=== PATIENT | female | born 1955 | race Caucasian/White ===

== ENCOUNTER 2017-06-18 10:38 | Inpatient (IN) ==
[2017-06-18] MEDS ORDERED: methylPREDNISolone SOD SUC 125 MG/2 ML VIAL IV STA (11:14)
[2017-06-18] MEDS ORDERED: MAGNESIUM SULF RIDER 2 GM in PREMIX 1 EACH IV STA (11:14)
[2017-06-18] MEDS ORDERED: ALBUTEROL/IPRATROPIUM 3 ML NEB RESP TX PRN ×3 (11:15→11:16)
--- NOTE | 2017-06-18 11:18 | EKG Report ---
Stationary ECG Study [facility] ER Test Date: 06/18/2017 11:08:34 AM Pat Name: BOZENA MARTI Department: Room: Gender: F Form Coverer: : [id number] Requested by: Brown Cuevas Order Number: [id number] Reading MD: ISABEL SUTTON Intervals [place] Rate: 77 P: 26 ID: [id number] QRS: 5 QRSD: 90 T: 22 QT: 372 QTc: 404 Interpretive Statements SINUS RHYTHM WITH FREQUENT VENTRICULAR PREMATURE COMPLEXES IN A BIGEMINAL PATTERN LOW QRS VOLTAGE IN PRECORDIAL LEADS MODERATE ST DEPRESSION Electronically Signed On 06-18-17 11:34:32 CDT by ISABEL SUTTON [email or web address]
[2017-06-18 11:54] LABS: Basophils # 0.1 10*3/uL (0.0-0.2); Basophils % 0.6 % (0.0-0.8); Eosinophils # 0.1 10*3/uL (0.0-0.87); Eosinophils % 1.4 % (0.00-10.9); Hematocrit 37.8 VOL% (35.7-47.0); Hemoglobin 12.5 GM/DL (12.0-16.0); Immature Granulocytes % 1.1 %; Immature Granulocytes Absolute 0.11 #; Lymphocytes # 2.9 10*3/uL (1.4-4.0); Lymphocytes % 28.6 % (21.3-54.2); Mean Corpuscular HGB Conc 33.1 GM/DL (32-36); Mean Corpuscular Hemoglobin 32 PG (27-34); Mean Corpuscular Volume 96.9 FL (87-102); Mean Platelet Volume 10.2 FL (9.6-12.0); Monocytes # 1.1 10*3/uL (0.11-0.8); Monocytes % 10.3 % (1.7-12.7); Platelet Count 186 T/CUMM (130-400); White Blood Count 10.2 T/CUMM (4-12)
[2017-06-18] MEDS ORDERED: MAGNESIUM SULF RIDER 50 ML IV ONE (11:54)
[2017-06-18] MEDS ORDERED: methylPREDNISolone SOD SUC 125 MG/2 ML VIAL ONE (11:55)
--- NOTE | 2017-06-18 12:17 | XRay Report ---
XR chest 1V portable Indication: Shortness of breath. Chest one view: No comparison. Large hiatal hernia is present. Heart size is normal. Lungs are hypoinflated with mild atelectasis but otherwise clear. Pleural spaces are clear. Surgical clips in the epigastric region noted. Impression: Large hiatal hernia. Suspect breakdown of fundoplication. PROCEDURE INTERPRETED AT [facility] DEPARTMENT OF RADIOLOGY Final Report Signed by: Noah Juan M.D.
[2017-06-18 12:28] LABS: Alanine Aminotransferase 32 U/L (13-56); Albumin 3.6 G/DL (3.4-5.0); Alkaline Phosphatase 69 U/L (45-117); Aspartate Amino Transferase 50 U/L (0-37); Bilirubin,Total < 0.39 MG/DL (0.2-1.0); Blood Urea Nitrogen 15 MG/DL (7-18); Calcium 8.4 MG/DL (8.5-10.1); Glucose 100 MG/DL (74-106); Osmolality,Calculated 277.5 MOS/KG (273-304); Potassium 4.5 MMOL/L (3.5-5.1); Sodium 139 MMOL/L (136-145); Total Protein 6.8 G/DL (6.4-8.3)
[2017-06-18 12:30] LABS: Troponin I Only 0.144 NG/ML (0.00-0.045)
[2017-06-18] MEDS ORDERED: ALBUTEROL 2.5 MG/3 ML NEB RESP TX STA (13:29)
--- NOTE | 2017-06-18 13:29 | Emergency Department Note ---
Quentin Velez Mantricia, am scribing for, and in the presence of, Brown Cuevas Jr., MD 11:17. Faith Velez Marvin Jr., MD, personally performed the services described in this documentation, ascribed by Josefa Saavedra in my presence, and it is both accurate and complete . Arrival - Arrival Chief Complaint: Shortness of Breath Stated Complaint: asthma attack ED Nursing Triage Note: C/o SOB, cough, and wheezing-onset yesterday. States she thinks she ran some fever yesterday, but is unsure of how high it was. Audible wheezing noted. Mode of Arrival: Wheelchair Limitations: Language Barrier Source: Patient - History of Present Illness HPI Narrative: Pt is a 62 y/o white female arriving to ED via wheelchair with c/o SOB that onset yesterday. She states that she had a similar episode 6 months ago when she was Dx with an asthma attack and bronchitis. She also reports a cough with green sputum, a subjective fever yesterday, and audible wheezing. Pt admits that she used to smoke for 48 years and has recently stopped 2 weeks ago. She reports that the SOB worsens with movement. She states that she has no local PCP because she recently moved here from [place]. She asks for a breathing treatment for some relief. No other complaints were reported to ED. Onset (ago): day(s) Consistency: constant Severity: moderate Date of Last Menstrual Period: hysterectomy Allergies/Adverse Reactions: Allergies Allergy/AdvReac Type Severity Reaction Status Date / Time Penicillins Allergy HIVES Verified 06/03/17 11:31 Review of System - Review of System Constitutional: Absent: chills, diaphoresis, fever Eyes: Absent: pain Head/Ears/Nose/Throat: Absent: earache Respiratory: Present: cough (with green sputum), respiratory distress (SOB), wheezing Gastrointestinal: Absent: abdominal pain, nausea, vomiting, diarrhea Medical,Surgical,& Family Hx - Medical History Neurology: No history of: Seizures Musculoskeletal: History of: Back/Neck Problems - Social History Smoking Status: Former smoker Frequency of Alcohol Use: None Type of Drug Use: None Exam Physical Examination: General: Well-developed well-nourished, moderate respiratory distress, patient can only speak 2-3 word sentences at a time Head: Normocephalic, atraumatic. Eyes: PERRLA, EOMI. Nose: No obvious acute deformities or discharge. Mouth: No obvious acute injury. Neck: Full range of motion without obvious pain. No midline tender to palpation. Lymphatic: no significant lymphadenopathy noted. Lungs: Tachypnea, marketed wheezing on inspiration and expiration, decreased air movement Heart: regular rate and rhythm, no obvious mummers. Abdomen: Soft nontender, nondistended, normal active bowel sounds. Skin: No obivous acute lesions noted Musculoskeletal: No gross deformities. Neurological: No focal findings, cranial nerves II through XII grossly normal. Psychiatric: Appropriate mood.. : Deferred Vital Signs: Vital Signs Temperature 96.8 F L 06/18/17 12:14 Pulse Rate 69 06/18/17 12:17 Respiratory Rate 28 H 06/18/17 12:17 Blood Pressure 112/56 06/18/17 12:14 O2 Sat by Pulse Oximetry 100 06/18/17 12:17 Course Course Narrative: Differential diagnosis, COPD exacerbation, pneumonia - Reevaluation(s) Reevaluation #1: Patient says she feels much better but she still has a significant amount of wheezing. The elevated troponin could be secondary to her chronic pulmonary disease or cardiac in origin. I will call the hospitalist and get him to admit this patient Time: 13:26 Results - Labs CBC & BMP: 06/18/17 11:42 06/18/17 11:42 Lab Results: I have reviewed the patients labs Labs: Laboratory Tests 06/18/17 06/18/17 11:42 11:42 WBC 10.2 RBC 3.90 Hgb 12.5 Hct 37.8 MCV 96.9 MCH 32 MCHC 33.1 RDW 15.0 Plt Count 186 MPV 10.2 Neut % (Auto) 58.0 Lymph % (Auto) 28.6 [place] % (Auto) 10.3 Eos % (Auto) 1.4 Baso % (Auto) 0.6 Neut # (Auto) 6.0 Lymph # (Auto) 2.9 [place] # (Auto) 1.1 H Eos # (Auto) 0.1 Baso # (Auto) 0.1 Immature Gran % 1.1 Nucleated RBC % 0.0 Immature Gran # 0.11 Nucleated RBCs # 0.00 Immature Plt Fraction 0.0 Sodium 139 Potassium 4.5 Chloride 103 Carbon Dioxide 29 Anion Gap 11.5 BUN 15 Creatinine 0.90 GFR Calculation 60 BUN/Creatinine Ratio 16.00 Glucose 100 Calculated Osmolality 277.5 Calcium 8.4 L Total Bilirubin < 0.39 AST 50 H ALT 32 Alkaline Phosphatase 69 Troponin I 0.144 H Total Protein 6.8 Albumin 3.6 Globulin 3.2 Albumin/Globulin Ratio 1.1 - EKG EKG results: interpreted by ERMD (Heart rate 77, frequent PVCs noted, and normal sinus rhythm without obvious acute ST changes.) - Diagnostic Findings Procedure: Chest x-ray: report reviewed by me, image reviewed by me (Large hiatal hernia. Suspect breakdown of fundoplication. ) Critical Care Time Critical Care Time: Yes (Severe COPD exacerbation versus ACS) Total Critical Care Time: 36 Disposition Clinical Impression: Severe COPD exacerbation, Elevated troponin Case discussed with: patient, patient's family Disposition: Still a Patient Condition: Stable Time of Disposition: 13:28
[2017-06-18] MEDS ORDERED: ALBUTEROL 2.5 MG/3 ML NEB RESP TX PRN (14:53)
[2017-06-18] MEDS ORDERED: guaiFENesin/DM ER 600-30 MG TABLET PO PRN (14:55)
[2017-06-18] MEDS ORDERED: DEXTROSE 50% 25 GM/50 ML SYRINGE IV PRN (14:55)
[2017-06-18] MEDS ORDERED: NICOTINE 21 MG/24 HR PATCH TRANSDERM PRN (14:55)
[2017-06-18] MEDS ORDERED: GLUCAGON 1 MG VIAL IM PRN (14:55)
[2017-06-18] MEDS ORDERED: ONDANSETRON 4 MG/2 ML VIAL IV PRN (14:55)
[2017-06-18] MEDS ORDERED: ALPRAZolam 0.25 MG TABLET PO PRN (14:59)
--- NOTE | 2017-06-18 15:05 | Hospitalist History & Physical ---
<Kemi Marcialda - Last Filed: 06/18/17 15:00> Assessment and Plan (1) Nicotine addiction Status: Acute Assessment and plan: Patient reports extensive nicotine use in in the past. She reports that she was a one pack per day smoker 40 years. She reported that she recently stopped smoking 2 weeks prior to presentation. Spoke with the patient in great detail regarding the importance of refraining from nicotine consumption. Patient verbalizes understanding of instructions. Nicotine patch has been offered for use during the clinical encounter. Patient has agreed to wear nicotine patch during the inpatient admission. Current Visit: Yes (2) COPD (chronic obstructive pulmonary disease) Status: Acute Assessment and plan: Due to the severity of the patient's presenting symptoms, the patient definitely has an underlying chronic obstructive pulmonary disease component. Given the fact that the patient has a very extensive history of nicotine use spanning over 48 years, the patient most likely has some degree of chronic obstructive pulmonary disease. We will start empiric antibiotics, inhaled bronchodilators, intravenous corticosteroids, and supplemental oxygenation. I spoke with the patient in great detail regarding the need to refrain from nicotine use. The patient reports that she recently stopped smoking 2 weeks prior to presentation. She reports that she had episodes similar in nature to the presenting symptoms in the past and was told that she had a component of both asthma and bronchitis. Although she was given this diagnosis, the patient has failed to obtain a primary care physician for further evaluation. Current Visit: Yes (3) Elevated troponin Status: Acute Assessment and plan: At the time of ED presentation, the patient's troponin level was noted at 0.144. EKG reported normal sinus rhythm but the absence of any acute ST changes however frequent PVCs were noted. We will obtain serial cardiac enzymes if positive we will consult cardiology. Current Visit: Yes History of Present Illness Chief complaint: Shortness of breath History of present illness: This is a 62-year-old female that presented to the ED at [facility] this morning for the evaluation of shortness of breath. The patient has a medical history significant for asthma, bronchitis, chronic obstructive pulmonary disease, nicotine addiction, and chronic neck and back pain. The patient reported no significant surgical history at the time of ED encounter. The patient reported the onset of the above symptoms 1 day prior to presentation. She reported that she recently stopped smoking 2 weeks prior to presentation after 48 years of smoking. She reports that she experienced an episode similar in nature 6 months prior to presentation in which she was subsequently diagnosed with asthma and bronchitis. In addition, she reports a productive cough with thick green sputum, subjective fever yesterday, and severe wheezing. When the patient's symptoms fail to improve, she decided to present to the ED at [facility] for further evaluation. The patient was seen and evaluated at the time of ED presentation. The patient was noted to be experiencing extreme difficulty breathing. Immediate prolonged inhaled bronchodilator treatments were initiated and the patient was placed on supplemental oxygen. Labs were obtained which were remarkable for calcium at 8.4, AST 50, and troponin at 0144. Chest x-ray was obtained which was essentially remarkable for large hiatal hernia and suspect breakdown of fundoplication was noted. In addition, the lungs were noted to be hyperinflated with mild atelectasis but otherwise clear. After brief discussion with both Dr. Cuevas and Dr. Noel, the patient will be admitted to the hospitalist service for continuation of care. At the time of presentation, the patient reported no current home medications. She reported that she recently relocated to [place] from [place] and has not secured a primary care physician; therefore no home medications will be reconciled. CODE STATUS has been discussed; patient is a FULL CODE. Allergies Allergy/AdvReac Type Severity Reaction Status Date / Time Penicillins Allergy HIVES Verified 06/03/17 11:31 Medical,Surgical,& Family Hx - Medical History Neurology: No history of: Seizures Musculoskeletal: History of: Back/Neck Problems - Social History Smoking Status: Former smoker Have you smoked in the last 12 months: Yes Time spent discussing smoking cessation with patient: more than 10 minutes Frequency of Alcohol Use: None Type of Drug Use: None Marital Status: Single Lives With:: Alone Functional capacity: independent ambulation - Constitutional Constitutional: Present: chills, fatigue, fever(s), weakness - EENT Eyes: Absent: blurry vision, diplopia Ears: Absent: decreased hearing, ear discharge, ear pain Nose, mouth and throat: Absent: lip swelling, nasal congestion, neck mass, neck pain, sinus pressure, throat swelling - Cardiovascular Cardiovascular: Present: dyspnea, dyspnea on exertion. Absent: claudication, diaphoresis, orthopnea, palpitations - Respiratory Respiratory: Present: cough, dyspnea, dyspnea on exertion, wheezing, change in phlegm color - Gastrointestinal Gastrointestinal: Absent: bloating, constipation, diarrhea, nausea, vomiting, jaundice - Genitourinary Genitourinary: Absent: abnormal vaginal bleeding, dysuria, flank pain, urinary frequency, urinary hesitancy, urinary incontinence - Musculoskeletal Musculoskeletal: Present: arthralgias, back pain, muscle weakness - Neurological Neurological: Absent: abnormal gait, abnormal speech, dizziness, frequent falls , headache(s), numbness, paresthesias, syncope, tremor(s) - Psychiatric Psychiatric: Present: anxiety, panic attacks. Absent: auditory hallucinations, confusion, difficulty concentrating, homicidal ideation, memory loss, suicidal ideation, visual hallucinations - Endocrine Endocrine: Absent: cold intolerance, fatigue, heat intolerance, polydipsia, polyphagia, polyuria - Hematologic/Lymphatic Hematologic/Lymphatic: Absent: easy bleeding, easy bruising, lymphadenopathy Exam - Constitutional Vitals: Period Temp Pulse Resp BP Sys/Barcenas Pulse Ox Last 24 Hr 96.8 F-96.8 F 39-88 20-36 112-112/56-56 88-100 General appearance: normal weight, mild distress - Head Head exam: Present: normal inspection, normocephalic, atraumatic - Eye Eye exam: Present: EOMI. Absent: conjunctival injection Pupils: Present: ADRIAN, normal accommodation - ENT ENT exam: Present: normal exam, normal external ear exam, normal oropharynx - Neck Neck exam: Present: normal inspection. Absent: lymphadenopathy, meningismus, tenderness, thyromegaly - Respiratory Respiratory exam: Present: accessory muscle use, wheezes. Absent: rales, rhonchi, stridor - Cardiovascular Cardiovascular exam: Present: regular rate and rhythm. Absent: carotid bruit, diastolic murmur, gallop, JVD, rubs, tachycardia - GI/Abdominal GI/Abdominal exam: Present: normal bowel sounds, soft - Extremities Exam Extremities exam: Present: normal inspection, normal capillary refill, full ROM. Absent: edema - Back Exam Back exam: Present: normal inspection - Neurological Exam Neurological exam: Present: alert, oriented X3, CN II-XII intact - Psychiatric Psychiatric exam: Present: anxious - Skin Skin exam: Present: normal color, warm, dry Results - Labs CBC & BMP: 06/18/17 11:42 06/18/17 11:42 Lab Results: I have reviewed the past 24 hour labs <Summer Noel - Last Filed: 06/18/17 17:15> History of Present Illness History of present illness: Ms. Dick is a 62 year old female with COPD/Asthma exacerbation.CXR showed Large hiatal hernia with suspect breakdown of fundoplication, troponin was high. Patient was seen, examined and discussed with the [employer]. -PPIs -Consider Surgery eval on Tuesday if patient is still here to evaluate ? fundoplication breakdown -serial cardiac enzymes -cardiac monitoring-patient states she has a history of ?v.tachy in the past which was ablated. -ASA, cardiology consult -Echo, Lipids, TSH, A1c -D-dimer -continue other management -ACEI, low dose bblocker - Exam - Constitutional Vitals: Period Temp Pulse Resp BP Sys/Barcenas Pulse Ox Last 24 Hr 96.8 F-96.8 F 39-88 20-36 112-137/56-64 88-100 Results - Labs CBC & BMP: 06/18/17 11:42 06/18/17 11:42
[2017-06-18] MEDS ORDERED: LEVOFLOXACIN INJ 150 ML IV ONE (15:42)
[2017-06-18] MEDS ORDERED: LEVOFLOXACIN INJ 750 MG in PREMIX 1 EACH IV SCH (16:00)
[2017-06-18] MEDS ORDERED: ENOXAPARIN 40 MG/0.4 ML SYRINGE SUBCUT SCH (17:00)
[2017-06-18] MEDS: INSULIN REGULAR 100 UNIT/ML SUBCUT SCH ×2 (17:28→20:32)
[2017-06-18 17:37] LABS: Free T4 (Free Thyroxine) 0.74 NG/DL (0.76-1.46); Thyroid Stimulating Hormone 1.66 uIU/ml (0.358-3.74)
[2017-06-18] MEDS: methylPREDNISolone SOD SUC 40 MG/1 ML VIAL IV SCH ×2 (17:41→23:53)
[2017-06-18] MEDS: NICOTINE 21 MG/24 HR PATCH TRANSDERM SCH (18:16)
--- NOTE | 2017-06-18 18:41 | CT Report ---
CT chest PE study Indication: Shortness of breath. CT CHEST WITH CONTRAST, PE PROTOCOL DLP: 231 mGy*cm. One or more of the following dose reduction techniques was used: Automated exposure control, adjustment of the mA and/or kV according the patient size, or use of iterative reconstruction techniques. Comparison: None Technique: Axial CT images of the chest were obtained during the pulmonary arterial phase of contrast injection. Coronal reconstructions were provided. Omnipaque 350, 100 cc. Findings: No central, lobar or segmental pulmonary artery filling defects. Main pulmonary artery is normal in size. Aorta is intact. Heart size is normal. Large hiatal hernia contains 50% of the stomach. No mediastinal, axillary or hilar lymphadenopathy. Atelectasis of the right lower lobe is present. There are some additional atelectasis or scarring the left lung base as well. Otherwise, lungs are clear. Pleural spaces are clear. Endplate degenerative changes thoracic spine are mild. Limited views of the upper abdomen demonstrate postoperative changes of left nephrectomy. The remainder of the upper abdomen appears unremarkable. Impression: 1. No evidence of PE. 2. Large hiatal hernia containing 50% of the stomach. Right basilar atelectasis. 3. Status post left nephrectomy. PROCEDURE INTERPRETED AT [facility] DEPARTMENT OF RADIOLOGY Final Report Signed by: Noah Juan M.D.
[2017-06-18] MEDS: ALBUTEROL/IPRATROPIUM 3 ML NEB RESP TX SCH (19:20)
[2017-06-18 19:50] LABS: Troponin I Only 0.063 NG/ML (0.00-0.045)
--- NOTE | 2017-06-18 20:08 | Cardiology Consult Note ---
Assessment and Plan (1) COPD (chronic obstructive pulmonary disease) Status: Acute Assessment and plan: 1. 62-year-old WF smoker with known significant COPD who quit her singular 5 days ago due to cost, and restarted smoking again yesterday and subsequently had severe wheezing and shortness of breath prompting hospitalization. She is feeling much better now after treatment. 2. Troponins were very slightly elevated at 0.140, and 0 .06 respectively. Given she has no acute EKG changes and has no chest discomfort or other symptoms this suggest acute coronary syndrome, we will simply follow her up in clinic and consider outpatient stress test. 3. 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 4. No further testing from cardiac standpoint is needed; I will sign off; call if needed prior to discharge. Current Visit: Yes (2) Elevated troponin Status: Acute Current Visit: Yes History of Present Illness - Consult Narrative History of present illness: Ms. Dick is a 62 year old female who has a long history of smoking but quit 1-2 weeks ago and also quit taking her Singulair about 5 days ago because it cost so much. She started back smoking yesterday and then began having severe shortness of breath and wheezing as she has had in the past. She was admitted and treated and feels much better now. She has never had any chest discomfort dizziness presyncope syncope or palpitations although she had did have some ventricular bigeminy noted. She has history of frequent PVCs noted back in 1995 and 1 questionable run of ventricular tachycardia. She saw Dr. Buckley after that event and "he did every test, and they are all fine". She reports she is doing very well on atenolol and has been resistant to acid changer the years CC: Summer Noel MD - Home Medications and Allergies Home Medications: Home Medications Medication Instructions Recorded Confirmed Type ALPRAZolam [Alprazolam] 1 mg PO BID 06/18/17 06/18/17 History Atenolol 100 mg PO DAILY 06/18/17 06/18/17 History Baclofen Tab [Lioresal] 5 mg PO BID 06/18/17 06/18/17 History Hydrocodone/Acetaminophen [Gray 1 each PO BID PRN 06/18/17 06/18/17 History 10-325 Tablet] Loratadine [Claritin] 10 mg PO DAILY 06/18/17 06/18/17 History Montelukast Tab [Singulair Tab] 10 mg PO DAILY 06/18/17 06/18/17 History Pregabalin [Lyrica] 75 mg PO DAILY 06/18/17 06/18/17 History Zolpidem [Ambien] 5 mg PO BEDTIME PRN 06/18/17 06/18/17 History Allergies/Adverse Reactions: Allergies Allergy/AdvReac Type Severity Reaction Status Date / Time Penicillins Allergy HIVES Verified 06/03/17 11:31 Medical,Surgical,& Family Hx - Medical History Cardio: History of: Hypertension Psychological: History of: Anxiety Disorders Neurology: No history of: Seizures Respiratory: History of: COPD Renal: History of: Renal (Kidney) Cancer Gastrointestinal: History of: GI Problems (Hernia) Musculoskeletal: History of: Back/Neck Problems - Surgical History Cardiac Surgeries: Sugical HX of: Cardiac Surgery (Attempted Ablasion) Thoracic Surgeries: Surgical HX of;: Nephrectomy Reproductive Surgeries: Surgical HX of;: Hysterectomy - Family History Family History: Reports;: Family Cancer (mother- breast and stomach), Family Hypertension (father) Denies;: Family Anesthesia Reaction, Family Diabetes, Family Heart Disease, Family Hematology, Family Psychiatric Problems, Family Stroke, Additional Family History - Social History Smoking Status: Former smoker Frequency of Alcohol Use: None Type of Drug Use: None Physical Examination Vital Signs Temp Pulse Resp BP Pulse Ox 96.8 F L 39 L 23 112/56 88 L 06/18/17 10:52 06/18/17 10:52 06/18/17 10:52 06/18/17 10:52 06/18/17 10:52 General: Present: Appears Well, No Apparent Distress Cardiac: Present: Reg Rate and Rhythm. Absent: Systolic Murmur, Diastolic Murmur Lungs: Present: Wheezes. Absent: Bibasilar Rales Abdomen: Present: Soft, Non-Tender Extremities: Present: No Edema Result/EKG - Labs CBC & BMP: 06/18/17 11:42 06/18/17 11:42 Labs: Laboratory Results - last 24 hr 06/18/17 06/18/17 06/18/17 11:42 11:42 11:42 WBC 10.2 RBC 3.90 Hgb 12.5 Hct 37.8 MCV 96.9 MCH 32 MCHC 33.1 RDW 15.0 Plt Count 186 MPV 10.2 Neut % (Auto) 58.0 Lymph % (Auto) 28.6 [place] % (Auto) 10.3 Eos % (Auto) 1.4 Baso % (Auto) 0.6 Neut # (Auto) 6.0 Lymph # (Auto) 2.9 [place] # (Auto) 1.1 H Eos # (Auto) 0.1 Baso # (Auto) 0.1 Immature Gran % 1.1 Nucleated RBC % 0.0 Immature Gran # 0.11 Nucleated RBCs # 0.00 Immature Plt Fraction 0.0 D-Dimer, Quantitative Sodium 139 Potassium 4.5 Chloride 103 Carbon Dioxide 29 Anion Gap 11.5 BUN 15 Creatinine 0.90 GFR Calculation 60 BUN/Creatinine Ratio 16.00 Glucose 100 Hemoglobin A1c Calculated Osmolality 277.5 Calcium 8.4 L Total Bilirubin < 0.39 AST 50 H ALT 32 Alkaline Phosphatase 69 Total Creatine Kinase CK-MB (CK-2) Troponin I 0.144 H Total Protein 6.8 Albumin 3.6 Globulin 3.2 Albumin/Globulin Ratio 1.1 Free T4 0.74 L TSH 3rd Generation 1.660 06/18/17 06/18/17 06/18/17 11:42 18:51 18:51 WBC RBC Hgb Hct MCV MCH MCHC RDW Plt Count MPV Neut % (Auto) Lymph % (Auto) [place] % (Auto) Eos % (Auto) Baso % (Auto) Neut # (Auto) Lymph # (Auto) [place] # (Auto) Eos # (Auto) Baso # (Auto) Immature Gran % Nucleated RBC % Immature Gran # Nucleated RBCs # Immature Plt Fraction D-Dimer, Quantitative 1.1 Sodium Potassium Chloride Carbon Dioxide Anion Gap BUN Creatinine GFR Calculation BUN/Creatinine Ratio Glucose Hemoglobin A1c 5.9 Calculated Osmolality Calcium Total Bilirubin AST ALT Alkaline Phosphatase Total Creatine Kinase 82 CK-MB (CK-2) 1.3 Troponin I 0.063 H D Total Protein Albumin Globulin Albumin/Globulin Ratio Free T4 TSH 3rd Generation
[2017-06-18] MEDS: CARVEDILOL 3.125 MG TABLET PO SCH (20:29)
[2017-06-18] MEDS: PANTOPRAZOLE 40 MG TABLET PO SCH (20:29)
[2017-06-18] MEDS: BACLOFEN 10 MG TABLET PO SCH (20:29)
[2017-06-18] MEDS: ALPRAZolam 0.25 MG TABLET PO SCH (20:30)
[2017-06-18] MEDS: DOCUSATE SODIUM 100 MG CAPSULE PO SCH (20:32)
[2017-06-18] MEDS ORDERED: PREGABALIN 75 MG CAPSULE PO SCH (21:00)
[2017-06-18] MEDS ORDERED: MONTELUKAST 10 MG TABLET PO SCH (21:00)
[2017-06-18] MEDS: ZALEPLON 5 MG CAPSULE PO PRN (21:03)
[2017-06-18 22:41] LABS: Apearance,Urine CLEAR (Clear); Bilirubin,Urine Negative (Negative); Blood, Urine Negative (Negative); Glucose,Urine (UA) Negative (Negative); Ketones,Urine Negative (Negative); Mucus,Urine Occasional /LPF (Occasional); Nitrite,Urine Negative (Negative); Protein,Urine Negative; RBC,Urine <1 /HPF (0-4); Squamous Epithelial Cell,Urine Occasional /HPF (0-10); Urine Color Yellow (Yellow); Urine Specific Gravity 1.011 (1.001-1.035); Urine Urobilinogen < 2.0 EU/DL (0.2-1.0); WBC,Urine 2 /HPF (0-6)
[2017-06-18 22:56] LABS: Barbiturates Screen,Urine Negative (Negative); Benzodiazepines Screen,Urine Positive (Negative); Cannabinoid Screen,Urine Negative (Negative); Opiate Screen,Urine Positive (Negative); Phencyclidine Screen,Urine Negative (Negative)
[2017-06-19] MEDS: ALBUTEROL/IPRATROPIUM 3 ML NEB RESP TX SCH ×2 (00:24→07:50)
[2017-06-19] MEDS: ZALEPLON 5 MG CAPSULE PO PRN (00:29)
[2017-06-19] MEDS: methylPREDNISolone SOD SUC 40 MG/1 ML VIAL IV SCH (05:22)
[2017-06-19 06:14] LABS: Basophils % 0.2 % (0.0-0.8); Hematocrit 33.4 VOL% (35.7-47.0); Hemoglobin 11.3 GM/DL (12.0-16.0); Immature Granulocytes % 1.3 %; Immature Granulocytes Absolute 0.08 #; Lymphocytes # 1.2 10*3/uL (1.4-4.0); Lymphocytes % 20.6 % (21.3-54.2); Mean Corpuscular HGB Conc 33.8 GM/DL (32-36); Mean Corpuscular Hemoglobin 32 PG (27-34); Mean Corpuscular Volume 93.8 FL (87-102); Mean Platelet Volume 10.4 FL (9.6-12.0); Monocytes # 0.3 10*3/uL (0.11-0.8); Monocytes % 5.7 % (1.7-12.7); Neutrophils # 4.3 10*3/uL (1.4-7.4); Neutrophils % 72.2 % (38.7-73.9); Platelet Count 170 T/CUMM (130-400); Red Blood Count 3.56 MC/CUMM (3.8-5.5); Red Cell Distribution Width 14.4 % (9.3-17.3); White Blood Count 5.9 T/CUMM (4-12)
[2017-06-19 06:43] LABS: Risk Ratio 3.15; VLDL CHOLESTEROL 20.8 MG/DL
[2017-06-19 06:59] LABS: Troponin I Only 0.037 NG/ML (0.00-0.045)
[2017-06-19 07:00] LABS: Alanine Aminotransferase 24 U/L (13-56); Albumin 2.9 G/DL (3.4-5.0); Alkaline Phosphatase 57 U/L (45-117); Aspartate Amino Transferase 28 U/L (0-37); Bilirubin,Total < 0.39 MG/DL (0.2-1.0); Blood Urea Nitrogen 13 MG/DL (7-18); Calcium 8.3 MG/DL (8.5-10.1); Glucose 147 MG/DL (74-106); Osmolality,Calculated 277.7 MOS/KG (273-304); Potassium 4.9 MMOL/L (3.5-5.1); Sodium 138 MMOL/L (136-145); Total Protein 5.9 G/DL (6.4-8.3)
[2017-06-19] MEDS: INSULIN REGULAR 100 UNIT/ML SUBCUT SCH (08:45)
[2017-06-19] MEDS: BACLOFEN 10 MG TABLET PO SCH (08:46)
[2017-06-19] MEDS: PANTOPRAZOLE 40 MG TABLET PO SCH (08:46)
[2017-06-19] MEDS: CARVEDILOL 3.125 MG TABLET PO SCH (08:46)
[2017-06-19] MEDS: DOCUSATE SODIUM 100 MG CAPSULE PO SCH (08:46)
[2017-06-19] MEDS: NICOTINE 21 MG/24 HR PATCH TRANSDERM SCH ×2 (08:47→08:51)
[2017-06-19] MEDS: ALPRAZolam 0.25 MG TABLET PO SCH (08:47)
[2017-06-19] MEDS ORDERED: LISINOPRIL 2.5 MG TABLET PO SCH (09:00)
[2017-06-19] MEDS ORDERED: ASPIRIN CHEW 81 MG TABLET PO SCH (09:00)
[2017-06-19] MEDS ORDERED: LORATADINE 10 MG TABLET PO SCH (09:00)
[2017-06-19 09:07] VITALS: BP 123/66
--- NOTE | 2017-06-19 09:10 | XRay Report ---
XR chest 1V Indication: Shortness of breath. Chest one view: Since yesterday, large hiatal hernia, normal heart size and mediastinal contour and nonspecific coarsening of interstitium of both lungs is stable. Impression: No change. PROCEDURE INTERPRETED AT [facility] DEPARTMENT OF RADIOLOGY Final Report Signed by: Noah Juan M.D.
--- NOTE | 2017-06-19 10:00 | Discharge Summary ---
<Jose Alberto Marcial - Last Filed: 06/19/17 09:53> Hospital Course - Hospital Course Hospital Course: This is a 62-year-old female that presented to the ED at [facility] on the morning of June 18, 2017 for the evaluation of shortness of breath. The patient has a medical history significant for asthma, bronchitis, chronic obstructive pulmonary disease, nicotine addiction, and chronic neck and back pain. The patient reported no significant surgical history at the time of ED encounter. The patient reported the onset of the above symptoms 1 day prior to presentation. She reported that she recently stopped smoking 2 weeks prior to presentation after 48 years of smoking. She reports that she experienced an episode similar in nature 6 months prior to presentation in which she was subsequently diagnosed with asthma and bronchitis. In addition, she reports a productive cough with thick green sputum , subjective fever yesterday, and severe wheezing. When the patient's symptoms fail to improve, she decided to present to the ED at [facility] for further evaluation. The patient was seen and evaluated at the time of ED presentation. The patient was noted to be experiencing extreme difficulty breathing. Immediate prolonged inhaled bronchodilator treatments were initiated and the patient was placed on supplemental oxygen. Labs were obtained which were remarkable for calcium at 8.4, AST 50, and troponin at 0144. Chest x-ray was obtained which was essentially remarkable for large hiatal hernia and suspect breakdown of fundoplication was noted. In addition, the lungs were noted to be hyperinflated with mild atelectasis but otherwise clear. After brief discussion with both Dr. Cuevas and Dr. Noel, the patient will be admitted to the hospitalist service for continuation of care. Empiric antibiotics, inhaled bronchodilators, and intravenous corticosteroids were initiated. The patient's troponins remain moderately elevated at 0.063 and 0.037. A cardiology consultation was requested. The patient was seen, evaluated, and recommendations were given. CT chest was negative for PE but showed a Large hiatal hernia containing 50% of the stomach. Right basilar atelectasis.The patient was given detailed instructions regarding smoking cessation, prescribed an partial nicotine agonist selective agent (Chantix) and advised to follow-up in the outpatient setting for further workup. The patient' s condition is stable. She has not experienced any significant overnight events. Today, we feel that she is indeed appropriate for discharge to establish primary care with a local physician and follow-up with cardiology as indicated inorder to evaluate her for a possible outpatient stress test and Surgery to re-evaluate her Hernia surgery.She will reduce her Atenolol to 50mg daily and have her Cardiology follow with her. Diagnosis - Discharge Diagnosis (1) Nicotine addiction Status: Acute (2) COPD (chronic obstructive pulmonary disease) Status: Acute (3) Elevated troponin Status: Acute Discharge Plan - Discharge Data Disposition: Disch To Home/Self Care - Discharge Medications New Aspirin Chew Tab 81 mg PO DAILY tablet Levofloxacin Tab [Levaquin Tab] 750 mg PO DAILY #7 tablet Nicotine 21 mg/24 Hr Patch [Nicoderm CQ 21 mg/24 hr Patch] 1 patch TRANSDERM DAILY PRN #7 patch PRN Reason: Nicotine Cravings Pantoprazole Tab [Protonix Tab] 40 mg PO BID #60 tablet predniSONE TAB [PredniSONE] See Taper PO DAILY #10 tablet Albuterol/Ipratropium Neb [Duoneb] 3 ml RESP TX RT Q6H #7 Atenolol [Tenormin] 50 mg PO DAILY #30 tablet Continue Montelukast Tab [Singulair Tab] 10 mg PO DAILY ALPRAZolam [Alprazolam] 1 mg PO BID Zolpidem [Ambien] 5 mg PO BEDTIME PRN PRN Reason: Insomnia Hydrocodone/Acetaminophen [[place] 10-325 Tablet] 1 each PO BID PRN PRN Reason: Pain Baclofen Tab [Lioresal] 5 mg PO BID Loratadine [Claritin] 10 mg PO DAILY Pregabalin [Lyrica] 75 mg PO DAILY No Action Atenolol 100 mg PO DAILY - Follow Up or Referral - Forms/Instructions Instructions: Varenicline (By mouth), How to Stop Smoking (DC), Chronic Obstructive Pulmonary Disease (DC) Exam - Constitutional Vitals: Period Temp Pulse Resp BP Sys/Barcenas Pulse Ox Last 24 Hr 96.8 F-98.7 F 39-92 17-36 112-137/56-99 91-100 Discharge Results Procedures and tests throughout hospitalization: Pending Orders 06/18/17 14:54 Sputum Culture and Gram Stain Stat 06/18/17 15:06 Blood Culture Stat Labs on day of discharge: Labs from last 24 hours 06/19/17 06/19/17 06/19/17 05:51 05:51 05:51 WBC 5.9 D RBC 3.56 L Hgb 11.3 L Hct 33.4 L MCV 93.8 MCH 32 MCHC 33.8 RDW 14.4 Plt Count 170 MPV 10.4 Neut % (Auto) 72.2 Lymph % (Auto) 20.6 L Fleming % (Auto) 5.7 Eos % (Auto) 0.0 Baso % (Auto) 0.2 Neut # (Auto) 4.3 Lymph # (Auto) 1.2 L Fleming # (Auto) 0.3 Eos # (Auto) 0.0 Baso # (Auto) 0.0 Immature Gran % 1.3 Nucleated RBC % 0.0 Immature Gran # 0.08 Nucleated RBCs # 0.00 Immature Plt Fraction 0.0 D-Dimer, Quantitative Sodium 138 Potassium 4.9 Chloride 105 Carbon Dioxide 29 Anion Gap 8.9 BUN 13 Creatinine 0.70 GFR Calculation 82 BUN/Creatinine Ratio 18.00 Glucose 147 H Hemoglobin A1c Calculated Osmolality 277.7 Calcium 8.3 L Magnesium Total Bilirubin < 0.39 AST 28 ALT 24 Alkaline Phosphatase 57 Total Creatine Kinase CK-MB (CK-2) Troponin I Total Protein 5.9 L Albumin 2.9 L Globulin 3.0 Albumin/Globulin Ratio 0.9 L Triglycerides 104 Cholesterol 170 LDL Cholesterol 104.0 VLDL Cholesterol 20.8 HDL Cholesterol 54 Heart Disease Risk Ratio 3.15 Free T4 TSH 3rd Generation Urine Color Urine Appearance Urine pH Ur Specific [place] Urine Protein Urine Glucose (UA) Urine Ketones Urine Blood Urine Nitrate Urine Bilirubin Urine Urobilinogen Urine Leukocytes Urine RBC Urine WBC Ur Squamous Epith Cells Urine Mucus Ur Culture Indicated? Urine Opiates Screen Ur Barbiturates Screen Ur Phencyclidine Scrn U Amphetamine/Methamph U Benzodiazepines Scrn U Cocaine Metab Screen U Cannabinoids Screen 06/19/17 06/19/17 06/18/17 05:51 05:51 18:51 WBC RBC Hgb Hct MCV MCH MCHC RDW Plt Count MPV Neut % (Auto) Lymph % (Auto) Fleming % (Auto) Eos % (Auto) Baso % (Auto) Neut # (Auto) Lymph # (Auto) Fleming # (Auto) Eos # (Auto) Baso # (Auto) Immature Gran % Nucleated RBC % Immature Gran # Nucleated RBCs # Immature Plt Fraction D-Dimer, Quantitative 1.1 Sodium Potassium Chloride Carbon Dioxide Anion Gap BUN Creatinine GFR Calculation BUN/Creatinine Ratio Glucose Hemoglobin A1c Calculated Osmolality Calcium Magnesium 2.2 Total Bilirubin AST ALT Alkaline Phosphatase Total Creatine Kinase 30 D CK-MB (CK-2) 1.1 Troponin I 0.037 Total Protein Albumin Globulin Albumin/Globulin Ratio Triglycerides Cholesterol LDL Cholesterol VLDL Cholesterol HDL Cholesterol Heart Disease Risk Ratio Free T4 TSH 3rd Generation Urine Color Urine Appearance Urine pH Ur Specific [place] Urine Protein Urine Glucose (UA) Urine Ketones Urine Blood Urine Nitrate Urine Bilirubin Urine Urobilinogen Urine Leukocytes Urine RBC Urine WBC Ur Squamous Epith Cells Urine Mucus Ur Culture Indicated? Urine Opiates Screen Ur Barbiturates Screen Ur Phencyclidine Scrn U Amphetamine/Methamph U Benzodiazepines Scrn U Cocaine Metab Screen U Cannabinoids Screen 06/18/17 06/18/17 06/18/17 18:51 17:25 17:25 WBC RBC Hgb Hct MCV MCH MCHC RDW Plt Count MPV Neut % (Auto) Lymph % (Auto) Fleming % (Auto) Eos % (Auto) Baso % (Auto) Neut # (Auto) Lymph # (Auto) Fleming # (Auto) Eos # (Auto) Baso # (Auto) Immature Gran % Nucleated RBC % Immature Gran # Nucleated RBCs # Immature Plt Fraction D-Dimer, Quantitative Sodium Potassium Chloride Carbon Dioxide Anion Gap BUN Creatinine GFR Calculation BUN/Creatinine Ratio Glucose Hemoglobin A1c Calculated Osmolality Calcium Magnesium Total Bilirubin AST ALT Alkaline Phosphatase Total Creatine Kinase 82 CK-MB (CK-2) 1.3 Troponin I 0.063 H D Total Protein Albumin Globulin Albumin/Globulin Ratio Triglycerides Cholesterol LDL Cholesterol VLDL Cholesterol HDL Cholesterol Heart Disease Risk Ratio Free T4 TSH 3rd Generation Urine Color Yellow Urine Appearance Clear Urine pH 5.0 Ur Specific [place] 1.011 Urine Protein Negative Urine Glucose (UA) Negative Urine Ketones Negative Urine Blood Negative Urine Nitrate Negative Urine Bilirubin Negative Urine Urobilinogen < 2.0 H Urine Leukocytes Negative Urine RBC <1 Urine WBC 2 Ur Squamous Epith Cells Occasional Urine Mucus Occasional Ur Culture Indicated? Not indicated Urine Opiates Screen Positive H Ur Barbiturates Screen Negative Ur Phencyclidine Scrn Negative U Amphetamine/Methamph Negative U Benzodiazepines Scrn Positive H U Cocaine Metab Screen Negative U Cannabinoids Screen Negative 06/18/17 06/18/17 06/18/17 11:42 11:42 11:42 WBC RBC Hgb Hct MCV MCH MCHC RDW Plt Count MPV Neut % (Auto) Lymph % (Auto) Fleming % (Auto) Eos % (Auto) Baso % (Auto) Neut # (Auto) Lymph # (Auto) Fleming # (Auto) Eos # (Auto) Baso # (Auto) Immature Gran % Nucleated RBC % Immature Gran # Nucleated RBCs # Immature Plt Fraction D-Dimer, Quantitative Sodium 139 Potassium 4.5 Chloride 103 Carbon Dioxide 29 Anion Gap 11.5 BUN 15 Creatinine 0.90 GFR Calculation 60 BUN/Creatinine Ratio 16.00 Glucose 100 Hemoglobin A1c 5.9 Calculated Osmolality 277.5 Calcium 8.4 L Magnesium Total Bilirubin < 0.39 AST 50 H ALT 32 Alkaline Phosphatase 69 Total Creatine Kinase CK-MB (CK-2) Troponin I 0.144 H Total Protein 6.8 Albumin 3.6 Globulin 3.2 Albumin/Globulin Ratio 1.1 Triglycerides Cholesterol LDL Cholesterol VLDL Cholesterol HDL Cholesterol Heart Disease Risk Ratio Free T4 0.74 L TSH 3rd Generation 1.660 Urine Color Urine Appearance Urine pH Ur Specific [place] Urine Protein Urine Glucose (UA) Urine Ketones Urine Blood Urine Nitrate Urine Bilirubin Urine Urobilinogen Urine Leukocytes Urine RBC Urine WBC Ur Squamous Epith Cells Urine Mucus Ur Culture Indicated? Urine Opiates Screen Ur Barbiturates Screen Ur Phencyclidine Scrn U Amphetamine/Methamph U Benzodiazepines Scrn U Cocaine Metab Screen U Cannabinoids Screen 06/18/17 11:42 WBC 10.2 RBC 3.90 Hgb 12.5 Hct 37.8 MCV 96.9 MCH 32 MCHC 33.1 RDW 15.0 Plt Count 186 MPV 10.2 Neut % (Auto) 58.0 Lymph % (Auto) 28.6 Fleming % (Auto) 10.3 Eos % (Auto) 1.4 Baso % (Auto) 0.6 Neut # (Auto) 6.0 Lymph # (Auto) 2.9 Fleming # (Auto) 1.1 H Eos # (Auto) 0.1 Baso # (Auto) 0.1 Immature Gran % 1.1 Nucleated RBC % 0.0 Immature Gran # 0.11 Nucleated RBCs # 0.00 Immature Plt Fraction 0.0 D-Dimer, Quantitative Sodium Potassium Chloride Carbon Dioxide Anion Gap BUN Creatinine GFR Calculation BUN/Creatinine Ratio Glucose Hemoglobin A1c Calculated Osmolality Calcium Magnesium Total Bilirubin AST ALT Alkaline Phosphatase Total Creatine Kinase CK-MB (CK-2) Troponin I Total Protein Albumin Globulin Albumin/Globulin Ratio Triglycerides Cholesterol LDL Cholesterol VLDL Cholesterol HDL Cholesterol Heart Disease Risk Ratio Free T4 TSH 3rd Generation Urine Color Urine Appearance Urine pH Ur Specific [place] Urine Protein Urine Glucose (UA) Urine Ketones Urine Blood Urine Nitrate Urine Bilirubin Urine Urobilinogen Urine Leukocytes Urine RBC Urine WBC Ur Squamous Epith Cells Urine Mucus Ur Culture Indicated? Urine Opiates Screen Ur Barbiturates Screen Ur Phencyclidine Scrn U Amphetamine/Methamph U Benzodiazepines Scrn U Cocaine Metab Screen U Cannabinoids Screen DS: Provider Date of admission: 06/18/17 14:58 Primary care physician: . No PCP Attending physician on admission: Summer Noel MD Consults: 06/18/17 17:26 Consult to Physician [CONS] Routine Comment: elevated troponin, SOB Consulting Provider: Dmitriy Pillai Person Notified: aware Date Notified: 06/18/17 Discharging clinician: Jose Alberto Marcial CNP <Summer Noel - Last Filed: 06/19/17 11:38> Hospital Course - Time spent with patient Time with patient DS: Greater than 30 minutes (time spent greter than 35mins) Diagnosis - Discharge Diagnosis (1) Nicotine addiction Status: Acute (2) COPD (chronic obstructive pulmonary disease) Status: Acute (3) Elevated troponin Status: Acute (4) Hiatal hernia Status: Acute Discharge Plan - Discharge Data Condition at Discharge: Stable Discharge Diet: advance to your usual diet Activity: resume usual activities as tolerated - Forms/Instructions Additional Discharge Instructions: Follow with PCP in 1week, follow with Cardiology and Surgery as scheduled Exam - Constitutional General appearance: no acute distress - Head Head exam: Present: normal inspection - Respiratory Respiratory exam: Present: rales - Cardiovascular Cardiovascular exam: Present: regular rate and rhythm - GI/Abdominal GI/Abdominal exam: Present: normal bowel sounds - Extremities Exam Extremities exam: Present: normal inspection
[2017-06-19] MEDS ORDERED: BACLOFEN 10 MG TABLET PO SCH (21:00)
[2017-06-19] MEDS ORDERED: ALPRAZOLAM 1 MG PO SCH (21:00)
[2017-06-20] MEDS ORDERED: ATENOLOL 100 MG TABLET PO SCH (09:00)
[2017-06-20] MEDS ORDERED: PREGABALIN 75 MG CAPSULE PO SCH (09:00)
[2017-06-20] MEDS ORDERED: LORATADINE 10 MG TABLET PO SCH (09:00)
[2017-06-20] MEDS ORDERED: MONTELUKAST 10 MG TABLET PO SCH (09:00)
== END 2017-06-19 12:10 | disposition home or self-care (01) | DRG 191 ==
LOC: N.ED 10:38 → N.EDINP 14:58 → N.5E 17:22
PROVIDERS: ADMIT Internal Medicine; ATTEND Internal Medicine